=== PATIENT | female | born 1950 | race Caucasian/White ===

== ENCOUNTER 2017-01-21 17:17 | Emergency (ER) | payer MEDICARE, BC ==
[~2017-01-21] VITALS: Ht 175.3 cm; Wt 74.8 kg
[~2017-01-21 17:17] MED LIST: CYCL-289 PO; GABA300C PO
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
[2017-01-21] MEDS ORDERED: HYDROMORPHONE 1 MG/1 ML DISP.SYRIN IM ONE (18:30)
[2017-01-21] MEDS ORDERED: HYDROMORPHONE 2 MG/1 ML DISP.SYRIN ONE ×2 (18:50→18:51)
[2017-01-21] MEDS ORDERED: HYDR4TAB4 PO (18:57)
--- NOTE | 2017-01-21 20:18 | NUR ---
Patient discharged to home in stable conditon. Written and verbal after care instructions given. Patient verbalizes understanding of instructions.
== END 2017-01-21 20:19 | disposition home or self-care (01) ==
LOC: ER 17:19
DX: G89.29 Other chronic pain (principal); M54.9 Dorsalgia, unspecified; F17.210 Nicotine dependence, cigarettes, uncomplicated; V89.2XXA Person injured in unspecified motor-vehicle accident, traffic, initial encounter; Y93.89 Activity, other specified; Y92.413 State road as the place of occurrence of the external cause; Y99.9 Unspecified external cause status
CPT/HCPCS: 72125; 72128; 72131; 96372; 99284; 99406; A4663; J1170

== ENCOUNTER 2018-01-29 13:28 | Outpatient (CLI) | payer MEDICARE, BC ==
[~2018-01-29 13:28] MED LIST changes: +HYDR4TAB4 PO
== END 2018-01-29 23:59 | disposition home or self-care (01) ==
LOC: RAD 13:28
PROVIDERS: ATTEND Family Medicine
DX: Z01.818 Encounter for other preprocedural examination (principal); I70.0 Atherosclerosis of aorta; J20.9 Acute bronchitis, unspecified
CPT/HCPCS: 71045

== ENCOUNTER 2018-02-05 12:59 | Inpatient (IN) | payer MEDICARE, BC ==
[~2018-02-05] VITALS: Ht 172.7 cm; Wt 63.5 kg
--- NOTE | 2018-02-05 20:45 | NUR ---
Admitted patient from [facility] via [facility]. Routine admission care done. Plan of care initiated. Dr. Knowles notified.
[2018-02-05 21:48] VITALS: BP 126/51
[2018-02-05] MEDS ORDERED: ACET-73 PO (22:14)
[2018-02-05] MEDS ORDERED: CYCL5TAB PO (22:14)
[2018-02-05] MEDS ORDERED: ASPI-612 PO (22:14)
[2018-02-05] MEDS ORDERED: FAMO20TA8 PO (22:14)
[2018-02-05] MEDS ORDERED: SENN-18 PO (22:14)
[2018-02-05] MEDS ORDERED: GABA800T2 PO (22:14)
[2018-02-05] MEDS ORDERED: BISA-79 PR (22:14)
[2018-02-05] MEDS ORDERED: GABA300S PO (22:14)
[2018-02-05] MEDS ORDERED: DRON2.5C3 PO (22:14)
[2018-02-05] MEDS ORDERED: DOCU100C36 PO (22:14)
[2018-02-05] MEDS ORDERED: ACETAMINOPHEN 325 MG TABLET PO PRN (23:15)
[2018-02-05] MEDS ORDERED: DOCUSATE SODIUM 250 MG CAPSULE PO PRN (23:15)
[2018-02-06] MEDS ORDERED: Z GUARD REMEDY PASTE 57 GM TUBE TOP PRN (00:45)
[2018-02-06] MEDS ORDERED: MAGNESIUM HYDROXIDE 30 ML LIQUID UDC PO PRN (00:45)
[2018-02-06] MEDS ORDERED: ONDANSETRON 4 MG/2 ML VIAL IV PRN (00:45)
[2018-02-06] MEDS: HYDROCODONE/APAP 5-325MG TABLET PO PRN ×5 (01:51→23:48)
[2018-02-06 04:30] VITALS: BP 136/72
[2018-02-06] MEDS: PANTOPRAZOLE SODIUM 40 MG TABLET.DR PO SCH (06:08)
--- NOTE | 2018-02-06 06:21 | NUR ---
Shift End Report: Vs stable. Slept good. Medicated once for pain with relief. No further complaint presented. Ambulatory to the bathroom with walker and minimal assist. No fall/injury. No respiratory distress. All needs attended and met. No significant event reported. Continue current rehab plan of care.
[2018-02-06] MEDS: DRONABINOL 2.5 MG CAPSULE PO SCH ×2 (06:30→17:21)
[2018-02-06 08:00] VITALS: BP 144/80
[2018-02-06] MEDS ORDERED: ASPIRIN 325 MG TABLET PO SCH (09:00)
[2018-02-06] MEDS: BISACODYL 5 MG TABLET.DR PO SCH (09:24)
[2018-02-06] MEDS: GABAPENTIN 300 MG CAPSULE PO SCH ×3 (09:24→17:21)
[2018-02-06] MEDS: FAMOTIDINE 20 MG TABLET PO SCH ×2 (09:24→17:21)
[2018-02-06] MEDS ORDERED: SENNOSIDES 1 TABLET PO PRN (12:15)
[2018-02-06 15:47] VITALS: BP 112/58
[2018-02-06 20:07] VITALS: BP 118/70
--- NOTE | 2018-02-06 20:23 | NUR ---
Received pt sleeping in bed, aroused easily when called by name. AAO x4. No acute distress noted. No c/o pain or discomfort at this time. Safety measures maintained. Call light and personal belongings within reach. Bed alarm on. Encouraged to use call light. Will continue to monitor.
[2018-02-07] MEDS: CYCLOBENZAPRINE HCL 10 MG TABLET PO PRN ×2 (05:46→23:02)
[2018-02-07] MEDS: PANTOPRAZOLE SODIUM 40 MG TABLET.DR PO SCH (06:12)
[2018-02-07 06:26] VITALS: BP 114/60
--- NOTE | 2018-02-07 06:47 | NUR ---
Dressing changed on surgical site and appears to be dry. Wrapped with OSMAN bandage. Will continue to monitor.
[2018-02-07] MEDS: DRONABINOL 2.5 MG CAPSULE PO SCH ×2 (06:51→16:44)
[2018-02-07 07:48] LABS: BASOPHILS % (AUTO) 0.3 % (0.0-2.0); EOSINOPHILS # (AUTO) 0.2 K/uL (0.0-0.7); EOSINOPHILS % (AUTO) 2.9 % (0.0-7.0); HEMATOCRIT 30.6 % (31.2-41.9); HEMOGLOBIN 10.6 g/dL (10.9-14.3); LYMPHOCYTES # (AUTO) 2.1 K/uL (20.0-40.0); MEAN CORPUSCULAR HEMOGLOBIN 32.9 uug (24.7-32.8); MEAN CORPUSCULAR HGB CONC 35 g/dL (32.3-35.6); MEAN CORPUSCULAR VOLUME 94.6 fL (75.5-95.3); MONOCYTES # (AUTO) 0.8 K/uL (2.0-10.0); MONOCYTES % (AUTO) 9.7 % (0.0-11.0); NEUTROPHILS # (AUTO) 5.2 K/uL (1.8-8.9); NEUTROPHILS % (AUTO) 62.1 % (38.5-71.5); PLATELET COUNT (AUTO) 245 K/uL (179-408); RED BLOOD CELL COUNT(AUTO) 3.23 MIL/uL (3.63-4.92); WHITE BLOOD COUNT (AUTO) 8.4 K/uL (3.8-11.8)
[2018-02-07 07:53] LABS: CREATININE 0.7 mg/dL (0.6-1.3); POTASSIUM 3.8 mmol/L (3.5-5.1)
[2018-02-07] MEDS: BISACODYL 5 MG TABLET.DR PO SCH (08:48)
[2018-02-07] MEDS: GABAPENTIN 300 MG CAPSULE PO SCH ×3 (08:48→16:44)
[2018-02-07] MEDS: FAMOTIDINE 20 MG TABLET PO SCH ×2 (08:49→16:44)
[2018-02-07] MEDS: HYDROCODONE/APAP 5-325MG TABLET PO PRN ×4 (08:49→21:56)
[2018-02-07 15:25] VITALS: BP 112/64
--- NOTE | 2018-02-07 19:54 | NUR ---
Received pt in bed and watching tv. AAO x4. No acute distress noted. No c/o pain or discomfort at this time. Safety measures maintained. Call light and personal belongings within reach. Will continue to monitor.
[2018-02-07] MEDS: ASPIRIN 325 MG TABLET PO SCH (20:22)
[2018-02-07 20:41] VITALS: BP 137/68
[2018-02-07] MEDS ORDERED: CYCLOBENZAPRINE HCL 10 MG TABLET ONE (22:59)
[2018-02-08] MEDS: HYDROCODONE/APAP 5-325MG TABLET PO PRN (05:48)
[2018-02-08] MEDS: PANTOPRAZOLE SODIUM 40 MG TABLET.DR PO SCH (06:00)
[2018-02-08 06:01] VITALS: BP 103/83
--- NOTE | 2018-02-08 06:09 | NUR ---
Pt did some walking around the unit at night before she went to bed. Surgical site cleaned and dressing was changed this morning. No s/s of infection noted. Will continue to monitor.
[2018-02-08] MEDS: DRONABINOL 2.5 MG CAPSULE PO SCH ×2 (06:31→16:48)
[2018-02-08] MEDS: ASPIRIN 325 MG TABLET PO SCH ×2 (08:30→16:48)
[2018-02-08] MEDS: BISACODYL 5 MG TABLET.DR PO SCH (08:30)
[2018-02-08] MEDS: GABAPENTIN 300 MG CAPSULE PO SCH ×3 (08:30→16:48)
[2018-02-08] MEDS: FAMOTIDINE 20 MG TABLET PO SCH ×2 (08:30→16:48)
--- NOTE | 2018-02-08 13:51 | NUR ---
INTERDISCIPLINARY TEAM CONFERENCE
--- NOTE | 2018-02-08 13:53 | NUR ---
Received patient awake in bed. Continue therapy for ambulation and ADL activity. no complaint of pain/discomfort. not in distress. Patient verbalize need of flu and pneumonia vaccine. MD aware. awaiting for order. will continue monitor
[2018-02-08 16:59] VITALS: BP_SYST 118; BP_SYST 128; BP_DIAS 70; BP_DIAS 80
[2018-02-08] MEDS ORDERED: HYDROMORPHONE HCL 2 MG TABLET PO PRN (17:45)
[2018-02-08] MEDS: HYDROMORPHONE HCL 2 MG TABLET PO PRN (18:40)
--- NOTE | 2018-02-08 19:00 | NUR ---
Received patient awake, sitting at the edge of bed. Denies any pain/discomforts at this time. Safety measures and fall precaution maintained. Continue care as planned.
[2018-02-08 20:19] VITALS: BP 121/70
[2018-02-08] MEDS: OXYCODONE HCL 10 MG TAB.SR.12H PO SCH (20:39)
[2018-02-08] MEDS ORDERED: OXYCODONE HCL 20 MG TAB.SR.12H PO SCH (21:00)
--- NOTE | 2018-02-08 21:15 | NUR ---
Minimal hand held assisted to the bathroom rendered.
[2018-02-09] MEDS: HYDROMORPHONE HCL 2 MG TABLET PO PRN ×3 (01:42→22:14)
--- NOTE | 2018-02-09 02:15 | NUR ---
Seen patient ambulating with walker in the hallway in slow and dragging gait. Instructed patient that its not safe for her to walk /get up at this time and assisted patient back to bed with no objection. Will continue to monitor.
[2018-02-09 05:08] VITALS: BP 111/69
--- NOTE | 2018-02-09 06:24 | NUR ---
Shift End Report: VS stable. Medicated once for pain with relief. Right knee incision site more tender, warm, swollen, redness, shiny and taut skin noted. Cold compress applied to affected area with slight effect. Instructed patient to always ambulate with walker in order not to put to strain on affected area. Patient verbalized understanding. No fall/injury reported. Continue current plan of care.
[2018-02-09] MEDS: DRONABINOL 2.5 MG CAPSULE PO SCH ×2 (06:46→17:37)
[2018-02-09] MEDS: PANTOPRAZOLE SODIUM 40 MG TABLET.DR PO SCH (06:46)
[2018-02-09] MEDS: ASPIRIN 325 MG TABLET PO SCH ×2 (08:18→17:37)
[2018-02-09] MEDS: BISACODYL 5 MG TABLET.DR PO SCH (08:18)
[2018-02-09] MEDS: GABAPENTIN 300 MG CAPSULE PO SCH ×3 (08:19→17:37)
[2018-02-09] MEDS: OXYCODONE HCL 10 MG TAB.SR.12H PO SCH ×2 (08:19→20:14)
[2018-02-09] MEDS: FAMOTIDINE 20 MG TABLET PO SCH ×2 (08:19→17:37)
--- NOTE | 2018-02-09 09:18 | NUR ---
Received patient awake in bed in stable condition. not in distress. Patient swelling and redness surrounds in surgical site noted. off loading under pillow on right leg and applied ice compress to the site. refuse therapy. MD Trujillo notified. Continue on pain management. Oxycodone 10mg every 12 hours given. will continue monitor
[2018-02-09 20:23] VITALS: BP 98/77
[2018-02-09] MEDS: SULFAMETH/TRIMETH 800/160 MG TABLET PO SCH (22:13)
--- NOTE | 2018-02-09 23:59 | NUR ---
Received pt at beginning of shift 1999, sitting at edge of bed, AAO x 4, on her cellphone. No acute distress noted. Verbally responsive and able to make needs known. C/O 10/10 pain scale on right knee. Medicated with scheduled pain meds. Tolerated well. Noted R knee to be swollen, red, tender to touch and hard. Picture taken and placed in chart. Dressing change done. MD Dr. Ball notified and started Bactrim DS PO 1 tab BID, start tonight. Order noted and carried out. All safety measures and fall precautions maintained. Assisted to the bathroom x 2 w/ FWW. Assisted into bed, applied ice pack to right leg. Call light and all personal belongings within reach. Will continue to monitor.
[2018-02-10] MEDS: HYDROMORPHONE HCL 2 MG TABLET PO PRN ×3 (02:42→18:20)
[2018-02-10] MEDS: PANTOPRAZOLE SODIUM 40 MG TABLET.DR PO SCH (06:34)
[2018-02-10] MEDS: DRONABINOL 2.5 MG CAPSULE PO SCH ×2 (06:34→17:12)
[2018-02-10 07:25] LABS: BASOPHILS # (AUTO) 0.1 K/uL (0.0-8.0); BASOPHILS % (AUTO) 1.2 % (0.0-2.0); EOSINOPHILS # (AUTO) 0.5 K/uL (0.0-0.7); EOSINOPHILS % (AUTO) 5.6 % (0.0-7.0); HEMATOCRIT 31.8 % (31.2-41.9); HEMOGLOBIN 10.9 g/dL (10.9-14.3); LYMPHOCYTES # (AUTO) 2.7 K/uL (20.0-40.0); LYMPHOCYTES % (AUTO) 30.6 % (20.5-51.5); MEAN CORPUSCULAR HEMOGLOBIN 32.5 uug (24.7-32.8); MEAN CORPUSCULAR HGB CONC 34 g/dL (32.3-35.6); MEAN CORPUSCULAR VOLUME 95.1 fL (75.5-95.3); MONOCYTES # (AUTO) 0.9 K/uL (2.0-10.0); MONOCYTES % (AUTO) 10.6 % (0.0-11.0); NEUTROPHILS # (AUTO) 4.5 K/uL (1.8-8.9); PLATELET COUNT (AUTO) 344 K/uL (179-408); RED BLOOD CELL COUNT(AUTO) 3.35 MIL/uL (3.63-4.92); WHITE BLOOD COUNT (AUTO) 8.7 K/uL (3.8-11.8)
[2018-02-10 08:00] VITALS: BP 111/63
--- NOTE | 2018-02-10 08:00 | NUR ---
Patient noted resting in bed with eyes closed, easily arouses, states that pain in right knee is a 9/10, scheduled pain medication given, no signs of distress noted, call light in reach, bed locked and in lowest position, all needs met at this time
[2018-02-10 08:10] LABS: BILIRUBIN,TOTAL 1.1 mg/dL (0.2-1.0); CREATININE 0.7 mg/dL (0.6-1.3); MAGNESIUM 2.2 mg/dL (1.8-2.4); POTASSIUM 5.1 mmol/L (3.5-5.1); TOTAL PROTEIN, SERUM 7.3 g/dL (6.4-8.2)
[2018-02-10 08:41] LABS: THYROID STIMULATING HORMONE 2.176 mIU/mL (0.358-3.740)
[2018-02-10] MEDS: ASPIRIN 325 MG TABLET PO SCH ×2 (08:44→17:12)
[2018-02-10] MEDS: BISACODYL 5 MG TABLET.DR PO SCH (08:45)
[2018-02-10] MEDS: SULFAMETH/TRIMETH 800/160 MG TABLET PO SCH ×2 (08:45→17:12)
[2018-02-10] MEDS: FAMOTIDINE 20 MG TABLET PO SCH ×2 (08:45→17:12)
[2018-02-10] MEDS: OXYCODONE HCL 10 MG TAB.SR.12H PO SCH ×3 (08:45→21:00)
[2018-02-10] MEDS: GABAPENTIN 300 MG CAPSULE PO SCH ×3 (08:45→17:12)
[2018-02-10 16:00] VITALS: BP 109/68
--- NOTE | 2018-02-10 18:37 | NUR ---
CT results sent to MD Orta's office per MD Trujillo orders, no response this shift. Patient noted taking of bandage and touching surgical site with bare hands, directed not to remove bandage or touch site, surgical site appears red, area cleaned with normal saline/ pat dry/ and new dressing placed. No signs of distress this shift, PRN pain medication given twice this shift.
--- NOTE | 2018-02-10 19:00 | NUR ---
Received patient lying crosswise in bed, appears very drowsy. Instructed and assisted patient to reposition herself in bed. Instructed patient to avoid getting up at this time and call for asssitance when needed to avoid fall. Safety measure and fall precaution maintained. Continue care as planned.
[2018-02-10 20:19] VITALS: BP 148/60
--- NOTE | 2018-02-10 21:05 | NUR ---
Saw patient ambulating to the the bathroom without the walker. Reminded patient the importance of it for safety purposes. Patient so drowsy, unsafe to ambulate at this time. Oxycontin held for now. Will closely monitor patient
--- NOTE | 2018-02-10 22:16 | NUR ---
Assisted to the bathroom. Voided good. No complaint of pain at thsi time. Right knee still swollen and tender. Cold compress applied as needed. Will continue to monitor.
--- NOTE | 2018-02-10 22:35 | NUR ---
Patient here, updated about patient condition. No question asked.
--- NOTE | 2018-02-11 | NUR ---
Now complaining of pain on right knee, held oxycontin due to drowsiness given this time. Will monitor.
[2018-02-11 05:22] VITALS: BP 126/66
[2018-02-11] MEDS: PANTOPRAZOLE SODIUM 40 MG TABLET.DR PO SCH (06:11)
[2018-02-11] MEDS: DRONABINOL 2.5 MG CAPSULE PO SCH ×2 (06:11→16:56)
--- NOTE | 2018-02-11 06:29 | NUR ---
Shift End Report: VS stable. Complaint of pain only once last night. Held Oxycontin due to drowsiness given this time. Close physical and visual supervision rendered due to unsteady gait and some restlessness. No fall/injury. Safety measures and fall precaution maintained and effective. No significant event reported. Continue care as planned.
[2018-02-11] MEDS: GABAPENTIN 300 MG CAPSULE PO SCH ×3 (09:11→16:56)
[2018-02-11] MEDS: FAMOTIDINE 20 MG TABLET PO SCH ×2 (09:11→16:56)
[2018-02-11] MEDS: ZINC SULFATE 220 MG CAPSULE PO SCH (09:11)
[2018-02-11] MEDS: ASPIRIN 325 MG TABLET PO SCH ×2 (09:11→16:55)
[2018-02-11] MEDS: ASCORBIC ACID 500 MG TABLET PO SCH (09:12)
[2018-02-11] MEDS: SULFAMETH/TRIMETH 800/160 MG TABLET PO SCH ×2 (09:12→16:56)
[2018-02-11] MEDS: BISACODYL 5 MG TABLET.DR PO SCH (09:12)
[2018-02-11] MEDS: OXYCODONE HCL 10 MG TAB.SR.12H PO SCH ×2 (09:20)
--- NOTE | 2018-02-11 10:23 | NUR ---
Receive patient awake in bed. Continue therapy for ADL activity. Continue pain management for pain with fair effect. Cold pack available in bed side. Continue ABT treatment for knee swelling and redness. no adverse reaction noted. will continue monitor
[2018-02-11] MEDS: HYDROMORPHONE HCL 2 MG TABLET PO PRN ×3 (13:18→19:59)
[2018-02-11] MEDS ORDERED: IV NS 1000 ML 1,000 ML IV PRN (18:00)
[2018-02-11] MEDS ORDERED: VANCOMYCIN IV 1,500 MG in IV DEXTROSE 5% 500 ML IV SCH (18:00)
--- NOTE | 2018-02-11 18:10 | NUR ---
Clinical Pharmacy Note: Vancomycin Dosing per Pharmacy Subjective: Vancomycin IV to start on this 67 yo female patient for r/o cellulitis Objective: BUN 17/Scr 0.7 (02/10) WBC 8.7 (02/10) Temperature 97.7\ ht 172.7 cm wt 63.5 kg Assessment/Plan: Will start vancomycin 1000mg IVPB Q16hr for a predicted vancomycin steady state trough level of 15.7 mcg/ml. 1st dose today at 1830. Will draw a vancomycin trough level prior to the 4th dose of vancomycin (not ordered yet). Will monitor renal function and adjust vancomycin dose, if needed, should renal function change significantly. Will follow daily.
[2018-02-11] MEDS ORDERED: VANCOMYCIN IV 1 G in PREMIXED 0 EACH IV SCH (18:30)
[2018-02-11] MEDS: PIPERACILLIN SODIUM/TAZOBACTAM 3.375 G in IV DEXTROSE 5% 50 ML IV SCH (18:50)
--- NOTE | 2018-02-11 19:00 | NUR ---
Received patient sitting up in wheelchair. Alert and verbally responsive. Able to make needs known. Denies any pain and discomfort at this time. No acute distress. No SOB. [place] to right knee intact. No s/s of bleeding. Noted with some redness. Per day shift nurse, is aware. IV site to right wrist. Patent and intact. No s/s o bleeding. No infiltration. Kept clean and dry. All needs attended to promptly. Call light within reach. Will continue to monitor.
--- NOTE | 2018-02-11 19:05 | NUR ---
Dr. Trujillo on-site. ordered IV start to infuse IV ABX (Vanco and Zosyn). Started PIV on Rt. wrist X1 attempt with 22G, good blood return, secured with tegaderm. Pt. tolerated procedure well.
[2018-02-11 19:53] VITALS: BP 113/62
[2018-02-11] MEDS: LACTOBACILLUS RHAMNOSUS GG 1 EACH CAPSULE PO SCH (21:00)
[2018-02-12] MEDS: DRONABINOL 2.5 MG CAPSULE PO SCH ×2 (06:35→17:13)
[2018-02-12] MEDS: PIPERACILLIN SODIUM/TAZOBACTAM 3.375 G in IV DEXTROSE 5% 50 ML IV SCH ×4 (06:35→12:41)
[2018-02-12] MEDS: PANTOPRAZOLE SODIUM 40 MG TABLET.DR PO SCH (06:35)
[2018-02-12] MEDS: HYDROMORPHONE HCL 2 MG TABLET PO PRN ×4 (06:40→22:53)
[2018-02-12 07:04] VITALS: BP 126/68
--- NOTE | 2018-02-12 07:06 | NUR ---
Patient alert and verbally responsive. Able to make needs known. C/o pain of right knee. Dilaudid given as ordered. No acute distress noted. IV site patent and intact. Close physical and visual supervision rendered due to unsteady gait and some restlessness. No fall/injury at this time. Safety measures and fall precaution maintained and effective. All needs attended too. Will continue to monitor.
[2018-02-12] MEDS: ASPIRIN 325 MG TABLET PO SCH ×2 (09:00→17:13)
[2018-02-12] MEDS: ASCORBIC ACID 500 MG TABLET PO SCH (09:00)
[2018-02-12] MEDS: ZINC SULFATE 220 MG CAPSULE PO SCH (09:00)
[2018-02-12] MEDS: GABAPENTIN 300 MG CAPSULE PO SCH ×3 (09:01→17:12)
[2018-02-12] MEDS: FAMOTIDINE 20 MG TABLET PO SCH ×2 (09:01→17:12)
[2018-02-12] MEDS: BISACODYL 5 MG TABLET.DR PO SCH (09:01)
[2018-02-12] MEDS: OXYCODONE HCL 10 MG TAB.SR.12H PO SCH ×2 (09:02→20:50)
[2018-02-12] MEDS: LACTOBACILLUS RHAMNOSUS GG 1 EACH CAPSULE PO SCH ×2 (09:07→20:50)
[2018-02-12 09:45] LABS: BASOPHILS # (AUTO) 0.1 K/uL (0.0-8.0); BASOPHILS % (AUTO) 1.1 % (0.0-2.0); EOSINOPHILS # (AUTO) 0.3 K/uL (0.0-0.7); EOSINOPHILS % (AUTO) 3.2 % (0.0-7.0); HEMATOCRIT 29.1 % (31.2-41.9); HEMOGLOBIN 10.1 g/dL (10.9-14.3); LYMPHOCYTES % (AUTO) 23.1 % (20.5-51.5); MEAN CORPUSCULAR HEMOGLOBIN 32.5 uug (24.7-32.8); MEAN CORPUSCULAR HGB CONC 35 g/dL (32.3-35.6); MEAN CORPUSCULAR VOLUME 93.4 fL (75.5-95.3); MONOCYTES # (AUTO) 0.8 K/uL (2.0-10.0); MONOCYTES % (AUTO) 9.3 % (0.0-11.0); NEUTROPHILS # (AUTO) 5.4 K/uL (1.8-8.9); NEUTROPHILS % (AUTO) 63.3 % (38.5-71.5); PLATELET COUNT (AUTO) 423 K/uL (179-408); RED BLOOD CELL COUNT(AUTO) 3.11 MIL/uL (3.63-4.92); WHITE BLOOD COUNT (AUTO) 8.5 K/uL (3.8-11.8)
[2018-02-12 10:01] LABS: BILIRUBIN,TOTAL 0.8 mg/dL (0.2-1.0); CREATININE 0.9 mg/dL (0.6-1.3); MAGNESIUM 1.9 mg/dL (1.8-2.4); PHOSPHOROUS 3.6 mg/dL (2.5-4.9); TOTAL PROTEIN, SERUM 6.9 g/dL (6.4-8.2)
[2018-02-12] MEDS ORDERED: VANCOMYCIN IV 1 G in PREMIXED 0 EACH IV SCH ×2 (12:00→15:30)
--- NOTE | 2018-02-12 12:14 | NUR ---
Clinical Pharmacy Note: Vancomycin Dosing per Pharmacy Subjective: Vancomycin IV to continue on this 67 yo female patient for r/o cellulitis Objective: BUN 15/Scr 0.7 WBC 8.5 Temperature 98.8 ht 172.7 cm wt 63.5 kg Assessment/Plan: Will continue vancomycin 1000mg IVPB Q16hr for a predicted vancomycin steady state trough level of 15.7 mcg/ml. 2nd dose today at 1200. Will draw a vancomycin trough level prior to the 4th dose of vancomycin (not ordered yet). Will monitor renal function and adjust vancomycin dose, if needed, should renal function change significantly. Will follow daily.
--- NOTE | 2018-02-12 13:15 | NUR ---
SBAR report received, Pt resting in bed this morning. Compliant with all routinely scheduled medications. VSS. Pain 10/10 resolved with PRN pain medication Dilaudid 6mg PO. Zosyn IV finished running. Pt assisted to change clothes for Dr. Orta follow up appointment. data storage specialist arrived and safely transferred to [facility]. Will await Pt return.
--- NOTE | 2018-02-12 15:20 | NUR ---
Pt returned from f/u appointment, [place] to right knee removed. Progress notes from Dr. Orta describe "10 day post R TKA, looking good- swelling but no sign of infection, PT walker, F/U 1 month." VSS 115/65, 75, 97.9. Picture taken of steri strip covered surgical incision. Will place in chart. Dr. Trujillo informed of progress, Vanco IV discontinued. Will continue to monitor. Call light within reach.
[2018-02-12 19:30] VITALS: BP 92/65
[2018-02-13 04:00] VITALS: BP 116/75
[2018-02-13] MEDS: HYDROMORPHONE HCL 2 MG TABLET PO PRN ×2 (05:03→14:30)
[2018-02-13] MEDS: DRONABINOL 2.5 MG CAPSULE PO SCH ×2 (06:41→18:12)
[2018-02-13] MEDS: PANTOPRAZOLE SODIUM 40 MG TABLET.DR PO SCH (06:41)
[2018-02-13 08:00] VITALS: BP 142/58
--- NOTE | 2018-02-13 08:00 | NUR ---
Patient noted resting in bed with eyes closed, easily arouses, states pain is 7/10 in right knee, will administer scheduled pain medication,no signs of distress, call light placed in reach, bed locked and in lowest position, all needs met at this time
[2018-02-13] MEDS: BISACODYL 5 MG TABLET.DR PO SCH (09:09)
[2018-02-13] MEDS: GABAPENTIN 300 MG CAPSULE PO SCH ×3 (09:09→18:12)
[2018-02-13] MEDS: ASCORBIC ACID 500 MG TABLET PO SCH (09:09)
[2018-02-13] MEDS: LACTOBACILLUS RHAMNOSUS GG 1 EACH CAPSULE PO SCH ×2 (09:09→20:19)
[2018-02-13] MEDS: OXYCODONE HCL 10 MG TAB.SR.12H PO SCH ×2 (09:09→20:19)
[2018-02-13] MEDS: ASPIRIN 325 MG TABLET PO SCH ×2 (09:09→18:12)
[2018-02-13] MEDS: ZINC SULFATE 220 MG CAPSULE PO SCH (09:09)
[2018-02-13] MEDS: FAMOTIDINE 20 MG TABLET PO SCH ×2 (09:09→18:12)
[2018-02-13 16:24] VITALS: BP 134/67
--- NOTE | 2018-02-13 19:30 | NUR ---
Received pt in bed AAO x 4 with friend at bedside. No acute distress noted. Verbally responsive and able to make needs known. Denies pain or discomfort at this time. All safety measures and fall precautions maintained. Call light and all personal belongings within reach. Will continue to monitor.
[2018-02-13 19:42] VITALS: BP 125/81
[2018-02-14] MEDS: HYDROMORPHONE HCL 2 MG TABLET PO PRN ×3 (01:22→13:30)
[2018-02-14 05:00] VITALS: BP 137/68
[2018-02-14] MEDS: PANTOPRAZOLE SODIUM 40 MG TABLET.DR PO SCH (06:27)
[2018-02-14] MEDS: DRONABINOL 2.5 MG CAPSULE PO SCH (06:30)
--- NOTE | 2018-02-14 07:19 | NUR ---
PATIENT NOTED RESTING IN BED WITH EYES CLOSED, NO FACIAL CUES OF PAIN NOTED, NO SIGNS OF DISTRESS, X2 BED RAILS, CALL LIGHT IN REACH, BED LOCKED AND IN LOWEST POSITION, ALL NEEDS MET AT THIS TIME
[2018-02-14] MEDS: GABAPENTIN 300 MG CAPSULE PO SCH ×2 (09:47→11:52)
[2018-02-14] MEDS: ASCORBIC ACID 500 MG TABLET PO SCH (09:47)
[2018-02-14] MEDS: LACTOBACILLUS RHAMNOSUS GG 1 EACH CAPSULE PO SCH (09:47)
[2018-02-14] MEDS: ASPIRIN 325 MG TABLET PO SCH (09:47)
[2018-02-14] MEDS: BISACODYL 5 MG TABLET.DR PO SCH (09:48)
[2018-02-14] MEDS: ZINC SULFATE 220 MG CAPSULE PO SCH (09:49)
[2018-02-14] MEDS: FAMOTIDINE 20 MG TABLET PO SCH (09:49)
[2018-02-14] MEDS: OXYCODONE HCL 10 MG TAB.SR.12H PO SCH (09:49)
--- NOTE | 2018-02-14 14:48 | NUR ---
Patient left facility at this time via wheelchair and private car, accompanied by , picture of right knee taken, MD Trujillo and Benson notified of patients discharge, discharge instructions given, discharge education given, left facility with front wheel walker, wheelchair will be delivered home, Follow up appointment with Doctor Marivel set for 03/12/18 set by case management
== END 2018-02-14 14:40 | disposition home health service (06) | DRG 560 ==
PROVIDERS: ADMIT Nurse Practitioner Acute Care; ATTEND Physical Medicine & Rehabilitation Pain Medicine
DX: Z47.1 Aftercare following joint replacement surgery (principal); D68.59 Other primary thrombophilia; E44.0 Moderate protein-calorie malnutrition; M25.062 Hemarthrosis, left knee; Z96.651 Presence of right artificial knee joint; G62.9 Polyneuropathy, unspecified; Z98.1 Arthrodesis status; M25.461 Effusion, right knee; Z87.891 Personal history of nicotine dependence; M19.90 Unspecified osteoarthritis, unspecified site; D53.9 Nutritional anemia, unspecified; Z98.890 Other specified postprocedural states; G89.29 Other chronic pain; M54.5 Low back pain; I10 Essential (primary) hypertension; Z91.048 Other nonmedicinal substance allergy status; Z96.653 Presence of artificial knee joint, bilateral; Z82.49 Family history of ischemic heart disease and other diseases of the circulatory system; Z82.3 Family history of stroke
CPT/HCPCS: 36415; 73700; 82652; 83735; 84100; 84443; 85025; 92523; 92526; 92610; 97110; 97116; 97165; 97530; 97535; J2543; J3370; J7030; J7040; J7060; Q0167

== ENCOUNTER 2018-08-26 16:34 | Outpatient (CLI) | payer MEDICARE, BC ==
[~2018-08-26 16:34] MED LIST changes: +ACET-73 PO; +ASPI-612 PO; +BISA-79 PR; +CYCL5TAB PO; +DOCU100C36 PO; +DRON2.5C11 PO; +FAMO20TA8 PO; +GABA300S PO; +GABA800T11 PO; +SENN-18 PO
== END 2018-08-26 23:59 | disposition home or self-care (01) ==
LOC: RAD 16:34
PROVIDERS: ATTEND Family Medicine
DX: Z01.810 Encounter for preprocedural cardiovascular examination (principal); I70.0 Atherosclerosis of aorta
CPT/HCPCS: 71046

== ENCOUNTER 2019-05-06 23:08 | Inpatient (IN) | payer MEDICARE, BC ==
[~2019-05-06] VITALS: Ht 172.7 cm; Wt 65.5 kg
[2019-05-06] MEDS ORDERED: GABA400C PO ×2 (23:21)
--- NOTE | 2019-05-06 23:28 | NUR ---
PATIENT WAS MSE BY DR DOOLEY IN ROOM 03A. PATIENT A & O X4.
[2019-05-06] MEDS ORDERED: NITROGLYCERIN OINT 1 GM PACKET TP ONE ×2 (23:30→23:38)
[2019-05-06] MEDS ORDERED: ASPIRIN 81 MG TAB.CHEW PO ONE (23:30)
[2019-05-06] MEDS ORDERED: NITROGLYCERIN 0.4 MG/TAB BOTTLE SL ONE ×2 (23:30→23:38)
[2019-05-06] MEDS ORDERED: ACETAMINOPHEN ES 500 MG TABLET PO ONE (23:30)
[2019-05-06] MEDS ORDERED: ASPIRIN 81 MG TAB.CHEW ONE (23:38)
[2019-05-06] MEDS ORDERED: ACETAMINOPHEN ES 500 MG TABLET ONE (23:38)
--- NOTE | 2019-05-06 23:50 | NUR ---
2 DOSE NITRO 0.4 MG GIVE SL STILL HAVING WITH CP BP 157/101 DR BURLESON AT BEDSIDE
--- NOTE | 2019-05-06 23:50 | NUR ---
3RD DOSE 1 TAB NITRO 0.4 MG GIVE SL STILL HAVING WITH CP BP 155/87 PAIN 6/10
[2019-05-06] MEDS ORDERED: HYDROMORPHONE 2 MG/1 ML DISP.SYRIN ONE (23:51)
[2019-05-06 23:52] LABS: BASOPHILS % (AUTO) 0.5 % (0.0-2.0); CREATININE 0.8 mg/dL (0.6-1.3); EOSINOPHILS # (AUTO) 0.3 K/uL (0.0-0.7); EOSINOPHILS % (AUTO) 3.2 % (0.0-7.0); HEMATOCRIT 39.8 % (31.2-41.9); HEMOGLOBIN 13.3 g/dL (10.9-14.3); LYMPHOCYTES # (AUTO) 3.8 K/uL (20.0-40.0); LYMPHOCYTES % (AUTO) 45.5 % (20.5-51.5); MEAN CORPUSCULAR HEMOGLOBIN 32.2 uug (24.7-32.8); MEAN CORPUSCULAR HGB CONC 33 g/dL (32.3-35.6); MEAN CORPUSCULAR VOLUME 96.8 fL (75.5-95.3); MONOCYTES # (AUTO) 0.6 K/uL (2.0-10.0); MONOCYTES % (AUTO) 7.3 % (0.0-11.0); NEUTROPHILS # (AUTO) 3.7 K/uL (1.8-8.9); NEUTROPHILS % (AUTO) 43.5 % (38.5-71.5); PLATELET COUNT (AUTO) 250 K/uL (179-408); POTASSIUM 3.5 mmol/L (3.5-5.1); RED BLOOD CELL COUNT(AUTO) 4.12 MIL/uL (3.63-4.92); WHITE BLOOD COUNT (AUTO) 8.4 K/uL (3.8-11.8)
[2019-05-07] MEDS ORDERED: HYDROMORPHONE 1 MG/1 ML DISP.SYRIN IV ONE
[2019-05-07 00:05] LABS: BILIRUBIN,DIRECT 0.2 mg/dL (0.0-0.2); BILIRUBIN,TOTAL 0.5 mg/dL (0.2-1.0); TOTAL PROTEIN, SERUM 7.7 g/dL (6.4-8.2)
--- NOTE | 2019-05-07 00:14 | NUR ---
[facility] CALLED FOR ADMISSION PER DR BURLESON. DR BENJAMIN CLINICAL PSYCHOLOGIST.
--- NOTE | 2019-05-07 00:20 | NUR ---
DR BENJAMIN SPOKE WITH DR BURLESON ACCEPTED PATIENT.
[2019-05-07 01:33] VITALS: BP 163/85
--- NOTE | 2019-05-07 01:35 | NUR ---
Admitted 68y/o Female under the care of Dr. Bishop. Dx: Chest pain and uncontrolled HTN. Patient is A&Ox4, ambulatory w/ steady gait. Patient placed on tele monitor. Heplock on R FA intact and patent. Oriented patient to her room and w/ the use of call light. Safety measures observed. Call light in reach
[2019-05-07] MEDS ORDERED: NITROGLYCERIN 0.4 MG/TAB BOTTLE SL PRN (02:15)
[2019-05-07] MEDS ORDERED: ONDANSETRON 4 MG/2 ML VIAL IV PRN (02:15)
[2019-05-07] MEDS ORDERED: MAGNESIUM HYDROXIDE 30 ML LIQUID UDC PO PRN (02:15)
[2019-05-07] MEDS ORDERED: Z GUARD REMEDY PASTE 57 GM TUBE TOP PRN (02:15)
[2019-05-07] MEDS ORDERED: HYDROCODONE/APAP 5-325MG TABLET PO PRN (02:15)
[2019-05-07] MEDS ORDERED: ACETAMINOPHEN 325 MG TABLET PO PRN (02:15)
[2019-05-07] MEDS ORDERED: ZOLPIDEM 5 MG TABLET PO PRN (02:15)
[2019-05-07] MEDS: METOPROLOL TARTRATE 25 MG TABLET PO SCH ×3 (02:37→20:31)
[2019-05-07] MEDS: MORPHINE SULFATE 2 MG/1 ML DISP.SYRIN IV PRN ×2 (02:38→03:20)
[2019-05-07 04:00] VITALS: BP 150/90
[2019-05-07] MEDS: HYDROMORPHONE 1 MG/1 ML DISP.SYRIN IV PRN ×4 (06:53→21:06)
[2019-05-07 08:05] LABS: *BILIRUBIN,URIN NEGATIVE (NEGATIVE); *BLOOD, URINE NEGATIVE (NEGATIVE); *CLARITY,URINE CLEAR (CLEAR); *COLOR,URINE YELLOW (YELLOW); *KETONES,URINE NEGATIVE (NEGATIVE); LEUKOCYTE ESTERASE ,URINE TRACE (NEGATIVE); NITRITE, URINE NEGATIVE (NEGATIVE); UGLUCOSE NEGATIVE (NEGATIVE)
[2019-05-07 08:17] LABS: BACTERIA,URINE OCC /HPF (NONE SEEN); RBC,URINE 0-3 /HPF (0-3); SQUAMOUS EPITHELIAL CELL,UR MANY /HPF (NONE SEEN); WBC,URINE 0-3 /HPF (0-3)
[2019-05-07] MEDS: ASPIRIN EC 81 MG TABLET.DR PO SCH (09:08)
[2019-05-07] MEDS: GABAPENTIN 400 MG CAPSULE PO SCH ×2 (09:09→16:43)
[2019-05-07] MEDS: KETOROLAC TROMETHAMINE 15 MG INJ IM PRN ×2 (09:42→15:47)
[2019-05-07 12:00] VITALS: BP 130/73
[2019-05-07 15:34] VITALS: BP 139/61
--- NOTE | 2019-05-07 20:00 | NUR ---
Received patient sitting in bed A&Ox4. No SOB noted. No complaints of pain at this time. Heplock on RFA intact and patent. Safety measures observed. Call light in reach
[2019-05-07 20:14] VITALS: BP 140/79
[2019-05-07] MEDS ORDERED: GABAPENTIN 400 MG CAPSULE PO SCH (21:00)
[2019-05-08 00:38] VITALS: BP 128/64
[2019-05-08 05:26] VITALS: BP 132/72
--- NOTE | 2019-05-08 06:34 | NUR ---
Patient slept well. No SOB noted. No complaints of pain at this time. All needs attended. Will endorse accordingly
[2019-05-08 06:49] LABS: BASOPHILS # (AUTO) 0.1 K/uL (0.0-8.0); BASOPHILS % (AUTO) 1.7 % (0.0-2.0); EOSINOPHILS # (AUTO) 0.3 K/uL (0.0-0.7); EOSINOPHILS % (AUTO) 6.4 % (0.0-7.0); HEMATOCRIT 39.2 % (31.2-41.9); HEMOGLOBIN 12.7 g/dL (10.9-14.3); LYMPHOCYTES # (AUTO) 2.3 K/uL (20.0-40.0); LYMPHOCYTES % (AUTO) 43.4 % (20.5-51.5); MEAN CORPUSCULAR HEMOGLOBIN 31.6 uug (24.7-32.8); MEAN CORPUSCULAR HGB CONC 33 g/dL (32.3-35.6); MEAN CORPUSCULAR VOLUME 97.3 fL (75.5-95.3); MONOCYTES # (AUTO) 0.3 K/uL (2.0-10.0); MONOCYTES % (AUTO) 6.4 % (0.0-11.0); NEUTROPHILS # (AUTO) 2.2 K/uL (1.8-8.9); NEUTROPHILS % (AUTO) 42.1 % (38.5-71.5); PLATELET COUNT (AUTO) 257 K/uL (179-408); RED BLOOD CELL COUNT(AUTO) 4.03 MIL/uL (3.63-4.92); WHITE BLOOD COUNT (AUTO) 5.3 K/uL (3.8-11.8)
[2019-05-08 06:50] LABS: CREATININE 0.7 mg/dL (0.6-1.3); MAGNESIUM 1.9 mg/dL (1.8-2.4); POTASSIUM 3.9 mmol/L (3.5-5.1)
[2019-05-08] MEDS: HYDROMORPHONE 1 MG/1 ML DISP.SYRIN IV PRN ×2 (08:40→12:20)
[2019-05-08] MEDS: ASPIRIN EC 81 MG TABLET.DR PO SCH (08:40)
[2019-05-08] MEDS: METOPROLOL TARTRATE 25 MG TABLET PO SCH (08:40)
[2019-05-08] MEDS: GABAPENTIN 400 MG CAPSULE PO SCH (08:41)
[2019-05-08] MEDS ORDERED: METO25TA6 PO (09:56)
[2019-05-08 11:02] VITALS: BP 131/66
[2019-05-08] MEDS ORDERED: HYDROMORPHONE HCL 2 MG TABLET PO PRN (13:15)
--- NOTE | 2019-05-08 14:00 | NUR ---
IV D/C'D ALL HOME INSTRUCTIONS REVIEWED WITH PT. PT. WILL MAKE FOLLOW-UP APPTS WITH PCP AND PAIN MANAGEMENT. D/C'D TO
== END 2019-05-08 14:00 | disposition home or self-care (01) | DRG 305 ==
LOC: ER 23:10 → TELE3 05-07 01:04 → MEDSURG3 05-08 10:17
PROVIDERS: ATTEND Student in an Organized Health Care Education/Training Program
DX: I16.0 Hypertensive urgency (principal); E44.0 Moderate protein-calorie malnutrition; D68.59 Other primary thrombophilia; F17.200 Nicotine dependence, unspecified, uncomplicated; I10 Essential (primary) hypertension; M19.90 Unspecified osteoarthritis, unspecified site; Z98.1 Arthrodesis status; Z96.651 Presence of right artificial knee joint; G89.4 Chronic pain syndrome; Z79.891 Long term (current) use of opiate analgesic; F17.210 Nicotine dependence, cigarettes, uncomplicated; Z74.09 Other reduced mobility; M96.1 Postlaminectomy syndrome, not elsewhere classified; Z79.899 Other long term (current) drug therapy; Z79.82 Long term (current) use of aspirin; M51.17 Intervertebral disc disorders with radiculopathy, lumbosacral region; D53.9 Nutritional anemia, unspecified; R94.6 Abnormal results of thyroid function studies
CPT/HCPCS: 36415; 70030-TC; 71045; 83735; 84100; 84443; 85025; 85730; 93005; 93307; A4663; A9150; G0378; J1170; J1885; J2270